=== PATIENT | female | born 2005 | race Caucasian/White ===

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

== ENCOUNTER 2024-10-31 14:18 | Emergency (ER) | payer OTHER, SELFPAY ==
--- NOTE | 2024-10-31 14:20 | ED.URI ---
HPI - URI/Sore Throat General Chief Complaint: Upper Respiratory Infection Stated Complaint: Sore throat / Cough Time Seen by Provider: 10/31/24 14:20 Source: patient Mode of arrival: ambulatory Limitations: no limitations History of Present Illness HPI Narrative: Patient is a 19-year-old female who presents with to or and throat 4 days ago with a cough and worse this that started yesterday. Denies any fever, chills, nausea, vomiting, diarrhea. Has been taking Tylenol and ibuprofen but nothing for cough. Related Data Home Medications ?Medication ?Instructions ?Recorded ?Confirmed ?Last Taken ?Type norgestimate-ethinyl estradiol 1 tablet PO DIRECTED 11/12/23 11/17/23 Unknown History 0.18mg/0.215mg/0.25mg-0.035mg(28)tablet (Tri-Sprintec (28)) Allergies Allergy/AdvReac Type Severity Reaction Status Date / Time Antihistamines - Alkylamine Allergy Severe Other Verified 10/31/24 14:27 Review of Systems Review of Systems: All systems reviewed & are unremarkable except as noted in HPI and below Constitutional: Constitutional: Denies chills, Denies fatigue, Denies fever(s), Denies headache(s), Denies malaise and Denies weakness Eyes: Eyes: Denies blurry vision, Denies itchy eyes and Denies loss of vision ENT: Denies otalgia, Denies headache(s), Reports hoarseness, Denies nasal congestion, Denies sinus pain and Reports sore throat Cardiovascular: Cardiovascular: Denies chest pain, Denies irregular heart rhythm and Denies dyspnea Respiratory: Respiratory: Reports cough and Denies dyspnea Gastrointestinal: Gastrointestinal: Denies abdominal pain, Denies diarrhea, Denies nausea and Denies vomiting Musculoskeletal: Musculoskeletal: Denies back pain, Denies myalgias and Denies arthralgias Integumentary/Breasts: Skin/Breast: Denies pruritus and Denies rash Neurologic: Denies headache(s), Denies loss of vision and Denies weakness Psychiatric: Psychiatric: Reports no additional psychiatric complaints Endocrine: Endocrine: Denies fatigue Allergic/Immunologic: Allergic/Immunologic: Denies itchy eyes PMFSH Past Medical History Medical History Gastrointestinal complaints Concussion Anxiety and depression 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 extra navicular bone right foot Surgical History Surgical History Combs teeth extracted History of tonsillectomy and adenoidectomy Family History Family History Mother Melanoma Depression Anxiety Thyroid disorder Heart disease Grandparent Diabetes mellitus Heart disease Hypertension Other Long QT syndrome Social History Social History Smoking status: Never smoker Second hand tobacco smoke exposure: No Alcohol intake: never Substance use: never Substance use type: does not use Do You Feel Safe in your Home?: Yes Lack of Transportation: No Lack of Food: Never True Current Housing: I Have Housing Concerned About Future Housing: No Difficulty Paying Gas/Electric Bills: No Difficulty Paying for Meds: No Currently Unemployed: No Living arrangements: with family Occupation/Education: student Gender identity (if verbalized by the patient): Female Sexual Orientation (if Verbalized by the Patient): Straight or Heterosexual Comments At time of signature, agree with nursing past medical, surgical, social and family history. There is no relevant family history pertinent to the presenting complaint. Exam Const: General: cooperative, healthy appearing, comfortable, no acute distress and well nourished Nutritional Appearance: well nourished Orientation/consciousness: patient oriented x3 Limitations: no limitations HENMT: Head: normal to inspection, normocephalic and atraumatic Ears: hearing grossly normal bilaterally, external ears normal, TM's normal bilaterally, EAC's normal and no periauricular adenopathy Face/Nose/Sinus: Normal external nose present, Abnormal mucous membranes and turbinates present erythematous bilateral and diffuse, normal facial exam, sinuses nontender and face symmetric Face and sinus: normal facial exam, sinuses nontender and face symmetric Mouth: Yes Normal oral and palatal mucosa present, Yes lip normal, Yes tongue normal, Yes Normal salivary glands and ducts present, Yes oropharynx normal and Yes moist mucous membranes Teeth and gingiva: dentition normal Throat: posterior oropharynx normal, tonsils normal and uvula midline Eyes: General: appearance normal, both eyes and all related structures Alignment and Position: alignment normal and position normal Periorbital: periorbital findings normal Eyelids: eyelids normal Pupils: Equal, round and reactive pupils present Neck: Neck: normal visual inspection, full ROM, no lymphadenopathy and supple Chest: Chest palpation & inspection: normal inspection of the chest and normal palpation of entire chest wall Resp: Effort & Inspection: normal respiratory effort, able to speak in complete sentences and no cough Auscultation: clear to auscultation bilaterally, no crackles, no rales, no rhonchi and no wheezes Cardio: Rate: regular rate Rhythm: regular rhythm Heart sounds: S1 normal heart sound present and S2 normal heart sound present GI: Inspection: normal to inspection Skin: General skin exam: normal color and no rashes or lesions noted Neuro: General: patient oriented x3 and moves all extremities Cranial nerves: Yes Equal, round and reactive pupils present Speech: normal speech Gait exam (Neuro): Normal gait present Extrem: General: normal to inspection, full ROM and no edema Psych: Appearance: grossly normal and well kempt Mental Status: mental status grossly normal Speech and movement: Normal speech and movement present Affect: normal affect Attitude: cooperative Thought process: Normal thought process present Course Course Emergency Course: Discharge instructions reviewed with patient, as well as provided in writing per nursing staff. The instructions also include specific and strict return/GO TO THE ER as well as f/u information. All questions have been answered, and the patient deny any further questions with discharge and discharge plan. Portions of this record may have been created with voice recognition software Level of Care: Express Care Visit Vital Signs Vital signs: Vital Signs Temperature 36.4 C L 10/31/24 14:24 Pulse Rate 79 10/31/24 14:24 Respiratory Rate 16 10/31/24 14:24 Blood Pressure 115/64 10/31/24 14:24 Pulse Oximetry 100 10/31/24 14:24 Oxygen Delivery Room Air 10/31/24 14:24 Temperature 36.4 C L 10/31/24 14:24 Pulse Rate 79 10/31/24 14:24 Respiratory Rate 16 10/31/24 14:24 Blood Pressure 115/64 10/31/24 14:24 Pulse Oximetry 100 10/31/24 14:24 Oxygen Delivery Room Air 10/31/24 14:24 Reviewed MDM - URI/Sore Throat MDM Narrative Medical decision making narrative: Pt well hydrated appearing, in no respiratory distress, hemodynamically stable. Recommend supportive care. The patient is stable at time of discharge the clinical impression was discussed and the patient was given the opportunity to ask questions, which were addressed as completely as possible given the information available at present. Anticipatory guidance and return to care precautions were discussed and the importance of primary care follow-up was stressed and encouraged. The patient voiced understanding of the plan, indications to return, and the need for follow-up. Exam findings show no acute concerns or changes Patient is appropriate for outpatient treatment and follow-up. Differential diagnosis considered: Naidu virus, strep pharyngitis, allergic rhinitis, upper respiratory tract infection, sinusitis, rhinosinusitis, nasopharyngitis. viral pharyngitis, otitis media, otitis externa, otitis effusion, foreign body, cerumen impaction, viral syndrome, and influenza.? Medical Records Attestation: I reviewed the patient's medical records. Lab Data Attestation: I reviewed the patient's lab results. Labs: Lab Results 10/31/24 Range/Units 14:31 POC Grp A Strep Screen Negative (Negative) Discharge Plan Discharge Clinical Impression: Upper respiratory infection Qualifiers: URI type: acute nasopharyngitis (common cold) Qualified Code(s): J00 - Acute nasopharyngitis [common cold] Patient Disposition: Home Condition: Stable Instructions: Upper Respiratory Infection (ED) Additional Instructions: Your rapid strep swab was negative today at [facility]. A throat culture will be sent to the laboratory for further testing. If the test is positive, you will receive a phone call within 48 hours and an appropriate antibiotic will be initiated at that time. Your symptoms are likely due to a viral illness, which is not treated with antibiotics. Viral symptoms can be present for up to a few weeks. -For pain/fever, you may take: Tylenol 650-1000mg by mouth every 4-6 hours. Do not exceed 4000mg in 24 hours. Advil (Ibuprofen) 600 mg by mouth every 6 hours. Do not exceed 2400mg in 24 hours. 8 AM: Tylenol 11 AM: Ibuprofen 2 PM: Tylenol 5 PM: Ibuprofen 8 PM: Tylenol 11 PM: Ibuprofen 2 AM: Tylenol 5 AM: Ibuprofen -Antihistamine medication such as Zyrtec at night and Claritin during the day can help improve symptoms. -Use Flonase twice a day for 5 days then daily to help reduce the inflammation and dry up your sinuses. -You can also use Sudafed behind the pharmacy counter(12 or 24 hour). Be sure to drink plenty of water with these medications at least 8 ounces with every dose and it is important to drink 8 to 10 glasses of water per day. Water is a natural decongestant -Eat and drink things that are easy to swallow, like tea or soup, or popsicles. -Oral rinses such as: Salt water gargles and/or may use topical anesthetic (eg. Chloraseptic spray) or lozenges to relieve dryness or throat pain). -Frequent hand washing or hand glass ribbon machine operator is one of the best ways to prevent spread of infection. -Using a vaporizer or humidifier at night will also help thin secretions and help with coughing up phlegm. Call your Primary Care Doctor and make a follow-up appointment in 3 days. If your cough worsens, you develop a fever greater than 103, you develop shaking chills, a fast heartbeat, trouble breathing and/or feel you are are breathing much faster than usual, call your Primary Care Doctor or go to the ER. Patient Language: Salvadorean Prescriptions: New benzonatate 100 mg capsule 100 mg PO BID PRN (Reason: cough) Qty: 14 0RF fluticasone propionate [Flonase Allergy Relief] 50 mcg/actuation spray,suspension 1 spray intranasal DAILY Qty: 16 0RF Rx Instructions: administer into each nostril No Action norgestimate-ethinyl estradiol [Tri-Sprintec (28)] 0.18/0.215/0.25 mg-35 mcg (28) tablet 1 tablet PO DIRECTED escitalopram oxalate 20 mg tablet 20 mg PO DAILY Qty: 1 0RF Follow-up/Referrals: Carla Giles MD [Primary Care Provider] - 3 Days Time of Disposition: 14:42
[2024-10-31 14:24] VITALS: BP 115/64; PULSE 79; RESP 16; TEMP 36.4; O2SAT 100
--- OUTSIDE RECORDS SUMMARY | 2024-10-31 14:24 | XMS_ITS | Clinical Summary ---
Author Organization [facility] Address [address] [place] [address] Phone Care Team Providers Care Die Sinker Name Role Phone Mary Platt MD Primary Care Provider [phone] Allergies No known active allergies Medications dicyclomine (BENTYL) 10 mg capsule Take 10 mg by mouth post-proc every 8 hours. 1 Active albuterol sulfate HFA 90 mcg/actuation aerosol inhaler INHALE 2 PUFFS BY MOUTH EVERY 4 HOURS NEEDED FOR COUGH OR DIFFICULTY BREATHING 1 Active amitriptyline (ELAVIL) 10 mg tablet Take 20 mg by mouth. 1 Active Active Problems Problem Noted Date Diagnosed Date Family history of cardiovascular disease 011 Venous hum 10/27/2010 Resolved Problems Problem Noted Date Diagnosed Date Resolved Date Heart murmur 10/26/2010 10/27/2010 Family History Relation Name Status Comments Father Alive Mother Alive Social History Tobacco Use Types Packs/Day Years Used Date Smoking Tobacco: Never Smokeless Tobacco: Never Tobacco Cessation:Counseling Given: No Alcohol Use Standard Drinks/Week Comments Never 0 (1 standard drink = 0.6 oz pur e alcohol) Comments No Sex and Gender Information Value Date Recorded Sex Assigned at Not on file Legal Sex Female 5:06 PM DYE OPERATOR Gender Identity Not on file Sexual Orientation Not on file Last Filed Vital Signs Vital Sign Reading Time Taken Comments Blood Pressure 102/60 04/20/2023 3:12 PM DYE OPERATOR Pulse 60 04/20/2023 3:12 PM DYE OPERATOR Temperature 36.8 C (98.3 F) 04/20/2023 3:12 PM DYE OPERATOR Respiratory Rate 12 04/20/2023 3:12 PM DYE OPERATOR Oxygen Saturation 99% 04/20/2023 3:12 PM DYE OPERATOR Inhaled Oxygen Concentration - - Weight 24.9 kg (55 lb) 10/26/2010 2:13 PM CDT Height 125.7 cm (4' 1.5) 10/26/2010 2:13 PM CDT Body Mass Index 15.78 10/26/2010 2:13 PM CDT Plan of Treatment Health Maintenance Due Date Last Done Comments CHLAMYDIA SCREENING (ANNUAL) 11-24 YEARS 01/13/2015 HPV VACCINES (1 - 3-dose series) 01/13/2019 DTAP/TDAP/TD VACCINES (1 - Tdap) 01/13/2023 HEPATITIS B VACCINES (1 of 3 - 19+ 3-dose series) 12/26 INFLUENZA VACCINE (#1) 2024 Insurance [employer] OPEN CHOICE PPO Care Teams Die Sinker Relationship Specialty Start Date End Date Mary Platt MD [address] [place] [id number] PCP - General Pediatrics 10/23/10
--- OUTSIDE RECORDS SUMMARY | 2024-10-31 14:24 | XMS_ITS | Clinical Summary ---
Author Organization [facility] Address [address] [place] [address] Care Team Providers Care Boot Turner Name Role Phone Mary Platt MD Primary Care Provider Carla Giles MD Unavailable [phone] Allergies No known active allergies Medications albuterol HFA (PROVENTIL HFA,VENTOLIN HFA,PROAIR HFA) 90 mcg/actuation inhaler INHALE 2 PUFFS BY MOUTH EVERY 4 HOURS NEEDED FOR COUGH OR DIFFICULTY BREATHING 1 Active Tri-Sprintec, 28, 0.18/0.215/0.25 mg-35 mcg (28) per tablet Take 1 tablet by mouth daily 5 Active escitalopram (LEXAPRO) 20 mg tablet Take 1 tablet (20 mg total) by mouth daily 5 Active Active Problems Problem Noted Date Diagnosed Date Postural orthostatic tachycardia syndrome (POTS) 05/28/2024 Palpitations 04/23/2024 Family history of long QT syndrome 04/23/2024 Sprain of medial collateral ligament of right kn ee 08/04/2021 Right knee injury, initial encounter 07/30/2021 Abdominal pain, epigastric 12/15/2018 Weight loss 12/15/2018 Acute pain of right knee 06/07/2018 Injury of right knee 06/07/2018 IBS (irritable bowel syndrome) 02/06/2018 Vocal cord dysfunction 09/13/2017 Overview (06/11/2020): Last Assessment & Plan: Vocal Cord Dysfunction - The incomplete/poor response to asthma medications, the normal chest exam, typical inspiratory pattern on PFT's, and description of dyspnea are most consistent with this diagnosis. Speech therapy referral - This is typically the most effective intervention for this problem. This will develop a treatment plan for laryngeal exercises and techniques to prevent and relieve episodes. I have reviewed the physiology of VCD, the larynx, and the paradoxic motion of the vocal cords typical of this entity. If symptoms persist despite speech therapy evaluation, I would like to see in follow up to evaluate for other triggers such as GERD that may be playing a role. Otherwise we will plan followup on an as needed basis. I think that her allergic rhinitis may be playing a role as a trigger as well. Will have her start Flonase. Mom to call with an update in symptoms. She has a modestly elevated Fraction of exhaled Nitric Oxide - marker of airway inflammation. This may represent some mild underlying asthma - the symptoms that have responded to albuterol in the past. I discussed with Mom that if Rain needs albuterol more than 2x a week or for a few days more than 2 x a month we should start controller therapy. We discussed the role of controller meds and the action of quick relief medications. Arthralgia of hip 08/17/2016 Disorder of hip region 08/17/2016 Arthralgia of ankle 02/04/2014 Pain of foot 02/01/2014 Surgical History Surgery Date Site/Laterality Comments TONSILECTOMY, ADENOIDECTOMY, BILATERAL MYRINGOTOMY AND TUBES FOOT SURGERY Medical History Medical History Date Comments Other congenital malformatio ns of lower limb(s), including pelvic girdle Accessory navicular b one of foot - (Added by TW Conv) Pain of foot Foot pain - (Add ed by TW Conv) IBS (irritable bowel syndrome) Anxiety Family History Medical History Relation Name Comments No Known Problems Father Diabetes Maternal Grandmother Family history of diabetes mellitus - (Added by TW Conv) Anxiety disorder Mother Cancer Mother Depression Mother Long QT syndrome Mother Family hist ory of long QT syndrome - (Added by TW Conv) Low Back Pain Mother Family history of low back pain - (Added by MICKY Conv) Migraines Mother Relation Name Status Comments Father Alive Maternal Grandmother Mother Alive Social History Tobacco Use Types Packs/Day Years Used Date Smoking Tobacco: Never Smokeless Tobacco: Never Tobacco Cessation:Counseling Given: No Comments Unknown Sex and Gender Information Value Date Recorded Sex Assigned at Not on file Legal Sex Female 6:19 AM PLASTIC WELDER Gender Identity Female 06/11/2020 8:14 AM CDT Sexual Orientation Not on file Obstetrics History Last Filed Vital Signs Vital Sign Reading Time Taken Comments Blood Pressure 118/70 05/28/2024 8:18 AM PLASTIC WELDER Pulse 80 05/28/2024 8:18 AM PLASTIC WELDER Temperature 35.8 C (96.5 F) 10/08/2021 9:15 AM CDT Respiratory Rate 18 10/08/2021 9:15 AM CDT Oxygen Saturation 98% 05/28/2024 8:18 AM PLASTIC WELDER Inhaled Oxygen Concentration - - Weight 69.4 kg (152 lb 14.4 oz) 05/28/2024 8:18 AM PLASTIC WELDER Height 165.1 cm (5' 5) 05/28/2024 8:18 AM PLASTIC WELDER Body Mass Index 25.44 05/28/2024 8:18 AM PLASTIC WELDER Plan of Treatment Health Maintenance Due Date Last Done Comments Depression Screening 2004 Hepatitis C Screening 2004 HPV Vaccines (1 - 3-dose series) 01/13/2019 Meningococcal B Vaccine (1 o f 2 - Standard) 2020 Regular Well Visit/Exam 18-64 01/13/2022 Influenza Vaccine (#1) 2024 DTaP/Tdap/Td Vaccine (7 - Td or Tdap) 01/20/2025 01/20/2015, 02/06/2009, 05/06/2005, Additional history exists Hepatitis B Screening Completed 01/15/2005 , 2004, 2004 Pneumococcal vaccine <65 Completed 005, 2004, 2004, Additional history exists Varicella Vaccines Completed 02/06/2009, 01/15/2005 Meningococcal Vaccine Completed 11/04/2020, 015 Insurance [facility]/PPO Address: [address] [address] [place] [address] [facility] CHOICE PLUS [facility] H[facility]/PPO Address: [address] [address] [place] [address] [employer] OPEN ACCESS [facility] Address: [address] [place] [address] [facility] CHOICE PLUS [facility] H[facility]/PPO Address: [address] [address] [place] [address] [employer] OPEN ACCESS [employer] OPEN ACCESS [employer] PPO POS Care Teams Boot Turner Relationship Specialty Start Date End Date Mary Platt MD [address] [facility] [address] [place] [id number] PCP - General 08/17/16 Carla Giles MD [address] [facility] [place] [address] Referring Physician Family Medicine 04/18/24
--- OUTSIDE RECORDS SUMMARY | 2024-10-31 14:24 | XMS_ITS | Encounter Summary ---
Author Organization [facility] Address [address] [place] [address] Care Team Providers Care Cloth Examiner Name Role Phone Mary Platt MD Primary Care Provider [phone] Mary Platt MD Primary Care Provider [phone] Encounter Details Date Type Department Care Team (Late st Contact Info) Description 05/08/2018 Telephone [facility] Pediatrics - [address] [place] [address] Carla Alfaro, CASE MANAGEMENT SPECIALIST-[facility] [address] [place] [address] Social History Tobacco Use Types Packs/Day Years Used Date Smoking Tobacco: Never Smokeless Tobacco: Never Alcohol Use Standard Drinks/Week Comments No 0 (1 standard drink = 0.6 oz pur e alcohol) Comments No Sex and Gender Information Value Date Recorded Sex Assigned at Not on file Legal Sex Female 5:44 AM LIQUOR BRIDGE OPERATOR Gender Identity Not on file Sexual Orientation Not on file documented as of this encounter Functional Status * Is person deaf or have serious hearing difficulty? Answer Date of Assessment Author No 02/06/2018 2:25 PM Julio Falcon RN * Is person blind or have serious difficulty seeing? Answer Date of Assessment Author No 02/06/2018 2:25 PM Julio Falcon RN * Does person have serious difficulty walking/climbing stairs? Answer Date of Assessment Author No 02/06/2018 2:25 PM Julio Falcon RN * Does person have difficulty dressing/bathing? Answer Date of Assessment Author No 02/06/2018 2:25 PM Julio Falcon RN * Does person have difficulty doing errands alone? Answer Date of Assessment Author No 02/06/2018 2:25 PM Julio Falcon RN documented as of this encounter Mental Status * Does person have difficulty concentrating/remembering/making decisions? Answer Entry Date Author No 02/06/2018 2:25 PM Julio Falcon RN documented in this encounter Miscellaneous Notes * Telephone Encounter - Samantha Al RN - 05/09/2018 9:00 AM LIQUOR BRIDGE OPERATOR Spoke with Rain's mom - reviewed MRI results again. Discussed plan for adolescent medicine aptand potential to switch from periactin to amitriptyline. Mom would like for Rain to continue periactin for the next several weeks and see if there is any improvement. Mom mentioned Rain hadused Levsin in the past with some relief - asking if this is an option until they can be seen by adolescent med. Will route to [place] - Mom aware someone will be in touch to schedule. OR BRIDGE OPERATOR * Telephone Encounter - Carla Alfaro APRN-CNP - 05/09/2018 8:23 AM LIQUOR BRIDGE OPERATOR The MRI looks good. No signs of IB. I recommend a referral to adolescent medicine. We discussed possibly trying SSRI therapy if Periactin was not helping. I can start this if mom is ok with that plan. OR BRIDGE OPERATOR * Telephone Encounter - Daphney Milian RN - 05/08/2018 2:48 PM CST Will send to Valeria Alfaro. OR BRIDGE OPERATOR * Telephone Encounter - Giovanna Barlow MD - 05/08/2018 1:27 PM CST This is a chronic issue. The results of the MRI and the scopes are normal. I would ask Carla Alfaro how she would like to handle this, unless if she is out of the office for more than a few days. OR BRIDGE OPERATOR * Telephone Encounter - Daphney Milian RN - 05/08/2018 12:56 PM CST Ginette Alfaro out of the office. Will send to Dr. Barlow to review. OR BRIDGE OPERATOR * Telephone Encounter - Samantha Al RN - 05/08/2018 12:26 PM LIQUOR BRIDGE OPERATOR Spoke with Rain's mom regarding MRI results. Mom reports Rain has been taking periactin as prescribed since last apt but has not seen any improvement with her symptoms. Mom reports symptomsare the same as last discussed. OR BRIDGE OPERATOR * Telephone Encounter - Kanika Cedillo - 05/08/2018 11:35 AM CST Spoke with mom she called for patients MRI results. OR BRIDGE OPERATOR documented in this encounter Plan of Treatment Not on file documented as of this encounter Visit Diagnoses Not on filedocumented in this encounter Care Teams Cloth Examiner Relationship Specialty Start Date End Date Mary Platt MD [address] [place] [id number] PCP - General 03/24/11 07/31/18 Mary Platt MD [address] [place] [phone] PCP - General Pediatrics 08/01/18 documented as of this encounter
--- OUTSIDE RECORDS SUMMARY | 2024-10-31 14:24 | XMS_ITS | Encounter Summary ---
Author Organization [facility] Address [address] [place] [address] Care Team Providers Care Bull Float Finisher Name Role Phone Mary Platt MD Primary Care Provider [phone] Mary Platt MD Primary Care Provider [phone] Encounter Details Date Type Department Care Team (Late st Contact Info) Description 07/13/2018 Telephone [facility] Pediatrics - [address] [place] [address] Carla Alfaro, PRESIDENT OF [facility] [place] [address] [place] [address] Social History Tobacco Use Types Packs/Day Years Used Date Smoking Tobacco: Never Smokeless Tobacco: Never Alcohol Use Standard Drinks/Week Comments No 0 (1 standard drink = 0.6 oz pur e alcohol) Comments No Sex and Gender Information Value Date Recorded Sex Assigned at Not on file 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
--- OUTSIDE RECORDS SUMMARY | 2024-10-31 14:24 | XMS_ITS | Clinical Summary ---
Author Organization [facility] Address [address] [place] [address] Care Team Providers Care Health Insurance Agent Name Role Phone Mary Platt MD Primary Care Provider [phone] Source Comments [facility],non-owned Affiliates and Associated Physician Practices is amultiple site organization consisting of ambulatory clinics and hospital sitesin [place], [place], [place] and [place]. This disclosure is being madepursuant to the Care Everywhere program and may not contain all information available regarding this patient. Last updated 17.[facility] Allergies No known active allergies Medications * This document contains information received from the source organization and may not represent a complete record from that organization. * Be aware that medications may not be up to date on this document. Always verify current medications with the patient. ibuprofen (MOTRIN) 200 MG tablet Take 600 mg by mouth every 6 hours as needed for Pain Active ferrous sulfate 325 (65 FE) MG tablet Take 1 tablet by mouth once daily 30 tablet 2 9 Active hyoscyamine (LEVSIN) 0.125 MG tabletIndicatio ns:Irritable Bowel Syndrome Take 2 tablets by mouth 4 times daily as needed for Spasms Reasons: Irritable Bowel Syndrome 100 tablet 1 9 Active Active Problems Problem Noted Date Diagnosed Date Left wrist pain 02/27/2018 IBS (irritable bowel syndrome) 02/06/2018 Weight loss 01/20/2018 Abdominal pain 01/20/2018 Nausea without vomiting 01/20/2018 Vocal cord dysfunction 09/13/2017 Assessment & Plan (09/13/2017 3:27 PM CDT): Vocal Cord Dysfunction - The incomplete/poor response [...] and the action of quick relief medications. Family history of long QT syndrome 10/24/2012 Overview (10/24/2012): - Mother with history of syncope in the post period - Currently managed with beta blockers Dizzy spells 10/24/2012 Obstructive sleep apnea syndrome 10/07/2010 SOB (shortness of breath) Resolved Problems Problem Noted Date Diagnosed Date Resolved Date Diarrhea 01/20/2018 03/06/2018 Hypertrophy of tonsils and adenoids 10/07/2010 09/13/2017 Family History Medical History Relation Name Comments Lupus Maternal Grandfather Long QT Syndrome Maternal Grandmother def ib / pacemaker Lupus Maternal Grandmother Other - Gastrointestinal Maternal Grandmother diverticulitis Other - Independent Marketing Consultant Maternal Grandmother enometr iosis Long QT Syndrome Maternal Uncle MVA - car diac event Heart defect Mother Long Q-T syndro me; mom, maternal grandma, and maternal uncle. Maternal uncle at age 16. Long QT Syndrome Mother hx of synco pe, worsened w/ zoloft, beta tarik Other - Independent Marketing Consultant Mother endometriosis Thyroid Disease Mother s/p radiatio n / now on replacement Anesthesia Reaction Neg Hx Bleeding Disorders Neg Hx Childhood Hearing Disorder Neg Hx Relation Name Status Comments Father Alive Maternal Grandfather Maternal Grandmother Alive Long QT Maternal Uncle Mother Alive Social History Tobacco Use Types Packs/Day Years Used Date Smoking Tobacco: Never Smokeless Tobacco: Never Alcohol Use Standard Drinks/Week Comments No 0 (1 standard drink = 0.6 oz pur e alcohol) Comments No Sex and Gender Information Value Date Recorded Sex Assigned at Not on file 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 Gender Identity Not on file Sexual Orientation Not on file Last Filed Vital Signs Vital Sign Reading Time Taken Comments Blood Pressure 98/62 09/29/2018 10:07 AM CDT Pulse 80 09/29/2018 10:07 AM CDT 16 RR Temperature 36.8 C (98.3 F) 05/03/2018 2:30 PM FORM COVERER Respiratory Rate 12 05/03/2018 2:30 PM FORM COVERER Oxygen Saturation 98% 05/03/2018 3:45 PM FORM COVERER Inhaled Oxygen Concentration - - Weight 61.1 kg (134 lb 11.2 oz) 019 10:07 AM CDT Height 165.5 cm (5' 5.16) 09/29/2018 1 0:07 AM CDT Body Mass Index 22.31 09/29/2018 10:07 AM CDT Plan of Treatment Health Maintenance Due Date Last Done Comments HIV SCREENING 01/13/2019 HPV VACCINE (1 - 3-dose series) 01/13/2019 CHLAMYDIA/GONORRHEA SCREENING 2020 MENINGOCOCCAL (Group B) VACC INE SHARED DECISION-MAKING (1 of 2 - Standard) 2020 HEPATITIS C SCREENING 01/09/2022 DTAP/TDAP/TD VACCINES (1 - Tdap) 01/13/2023 HEPATITIS B VACCINE (1 of 3 - 19+ 3-dose series) 01/13/2023 COVID-19 VACCINE (1 - 2023-2 5 season) 2023 DEPRESSION SCREENING 03/28/2024 INFLUENZA VACCINE (#1) 2024 ZOSTER VACCINE (1 of 2) 01/13/2054 HIB VACCINE Aged Out No longer eligi ble based on patient's age to complete this topic MENINGOCOCCAL GROUPS A/C/Y/W VACCINE Aged Out No longer eligible b ased on patient's age to complete this topic PNEUMOCOCCAL VACCINE Aged Out No long er eligible based on patient's age to complete this topic Insurance [employer] MANAGED MEDICARE ADV [address] [facility] Care Teams Health Insurance Agent Relationship Specialty Start Date End Date Mary Platt MD PCP - General Pediatrics 08/01/18
--- OUTSIDE RECORDS SUMMARY | 2024-10-31 14:24 | XMS_ITS | Continuity of Care Document ---
Author Name [facility] Address [address] [place] [address] Organization [facility] Care Team Providers Care Snap Attacher Name Role Phone [facility] Unavailable Unavailable Problems Problem Status Onset Date Problem Type Date of Resolution Comments Source Cervicalgia Active Diagnosis Neck pain (finding) Diagnosis Headache (finding) Diagnosis Anesthesia of skin (finding) Diagnosis Exposure to attack by other person (finding) Diagnosis Soccer (qualifier value) Diagnosis Fall involving sports equipment (finding) Diagnosis Concussion with no loss of consciousness (disorder) Diagnosis Fall on same level due to impact against another person (finding) Diagnosis Place of occurrence of accident or poisoning (environment) Diagnosis Injury due to exposure to external cause (disorder) Diagnosis Results Order Name Results Value Reference Range Date Interpretation Comments Source CT Head or Brain CT Head or Brain CT Scan/CT Angio Accession # Exam Date/Time Procedure Ordering Provider [id number] 2024 15:[address] Head or Brain Viji BUSCH, Suyapa Lockwood Reason For Exam (CT Head or Brain) fall Report EXAMINATION: CT Head or Brain without IV contrast INDICATION: fall COMPARISON: None FINDINGS: CT HEAD: INFARCT: No vascular territory infarct. HEMORRHAGE: No parenchymal or extra-axial hemorrhage. MASS EFFECT: None. PARENCHYMA: No intraparenchymal mass. VOLUME LOSS: None. VENTRICLES: No ventriculomegaly. VESSELS: Unremarkable. BONES: No acute fracture. SINUSES: Clear. MASTOIDS: Clear. ORBITS: Symmetric. SOFT TISSUES: Normal. IMPRESSION: No acute intracranial findings. I have personally reviewed the images and attest to the contents of this report. * * *Final Report* * * Electronically Signed by: Micaela Garcia DO Signed on: 01/14/24 16:30 01/13 15:35 :26 [facility] Consultation Notes Results Value Date Source Emergency Services Note Basic Informatio n Chief Complaint BIBA after being tackled during a soccer match reports neck and head pain C collar in placed denies LOC denies blood thinners History of Present Illness 19 year old female arrives via EMS after injury during college soccer match today. Patient was jumping up for a header and collided with 3 other players. Fell to the ground but denies LOC, has not walked since injury. EMS reported cervical spine tenderness, C-collar applied and patient placed on backboard. Patient reporting bilateral floaters, no other ocular complaints. No injuries. GCS 15. Review of Systems All pertinent systems reviewed and negative except as noted in HPI. Physical Exam Vitals and Measurements T: 37 C HR: 84 RR: 18 BP: 129/72 SpO2: 99% WT: 68.7 kg General: No acute distress Cardiac: Regular rate and rhythm, no edema, adequate peripheral perfusion Pulmonary: Clear to auscultation bilaterally, symmetric expansion, normal inspiratory effort Abdomen: Soft, non-tender, non-distended Extremities: Normal strength, no deformity, distal pulses present, sensation grossly intact Skin: Warm, dry, no rash Neuro: No focal deficits, alert and oriented Psych: Cooperative Procedure Medical Decision Making 19-year-old female arrives via EMS after injury during college soccer match. Patient is accompanied by parents, sister, boyfriend who contribute to the history. Boyfriend states she collided with another player while attempting to head the ball, patient is not remember the exact mechanism of injury but denies LOC. GCS 15, no obvious injuries. On exam patient has some left cervical paraspinal tenderness, no midline tenderness. Cervical collar was removed. After shared decision-making with family, we will proceed with CT head. Ordered ibuprofen, Lidoderm for neck pain. Interpreted CT head which is negative for acute pathology. Remains well-appearing on reassessment, ambulated and tolerated p.o. while in the ED. Placed order for follow-up with concussion clinic. Provided prescription for methocarbamol as needed for breakthrough symptoms at home. Reexamination/Reevaluation Assessment/Plan Concussion Patient Education Acute Concussion Follow Up With When Contact Information Follow up with primary care provider Within 5 to 7 days Additional Instructions: If Symptoms Persist Return to Emergency Department Additional Instructions: If symptoms worsen Medication Reconciliation ED Forms Problem List/Past Medical History Procedure/Surgical History Medication Administration Given ibuprofen 800 mg oral tablet, 800 mg, Oral Lidocaine 5% patch (Lidoderm), 1 Patch, Transdermal Allergies No Known Medication Allergies Social History Family History Lab Results Diagnostic Results (2024 15:[address] Head or Brain) EXAMINATION: CT Head or Brain without IV contrast INDICATION: fall COMPARISON: None FINDINGS: CT HEAD: INFARCT: No vascular territory infarct. HEMORRHAGE: No parenchymal or extra-axial hemorrhage. MASS EFFECT: None. PARENCHYMA: No intraparenchymal mass. VOLUME LOSS: None. VENTRICLES: No ventriculomegaly. VESSELS: Unremarkable. BONES: No acute fracture. SINUSES: Clear. MASTOIDS: Clear. ORBITS: Symmetric. SOFT TISSUES: Normal. IMPRESSION: No acute intracranial findings. [1] ECG [1] CT Head or Brain; Micaela Garcia DO 2024 15:41 CDT Attestation by Monty Garsia MD on January 17, 2024 18:39 I personally saw and evaluated the patient. I discussed the management with the resident and reviewed the resident's note. Grace elements of my history, exam, and/or medical decision making include: Neck strain as well I personally reviewed all images and the reports along with labs results that were ordered/obtained. I reviewed current and past available electronic medical records pertaining to today's concern. 2024 Vital Signs Vital Sign Value Date Comments Source SpO2 96 % 2024 21:16:54 [facility] Heart Rate 67 bpm 2024 21:16:46 [facility] Respiratory Rate 16 2024 21:16:00 [facility] Mean NIBP 83 mm[Hg] 2024 21:15:07 [facility] SBP NIBP 112 mm[Hg] 2024 21:15:07 [facility] DBP NIBP 71 mm[Hg] 2024 21:15:07 [facility] Weight (kg) 68.7 kg 2024 19:39:00 [facility] SBP NIBP 129 mm[Hg] 2024 19:39:00 [facility] DBP NIBP 72 mm[Hg] 2024 19:39:00 [facility] Heart Rate 84 bpm 2024 19:39:00 [facility] Respiratory Rate 18 2024 19:39:00 [facility] SpO2 99 % 2024 19:39:00 [facility] Temperature (Celsius) 37 Echo 2024 19:39:00 [facility] Encounters Location Location Details Encounter Type Encounter Number Reason For Visit Attending Provider ADM Date DC Date Status Source [facility] Transport [id number] Fara Terry 01/13 19:20 :00 01/13 19:32 :00 [facility] Emergency [id number] Fara Terry 01/13 19:38 :24 01/13 21:19 :00 [facility] Social History Social History Date Source No data available for this section 2024 [facility] No data available for this section 2024 [facility]
--- OUTSIDE RECORDS SUMMARY | 2024-10-31 14:27 | XMS_ITS | Continuity of Care Document ---
Author Name [facility] Address [address] [place] [address] Organization [facility] Care Team Providers Care Patient Services Manager Name Role Phone [facility] Unavailable Unavailable Problems Problem Status Onset Date [...] Accession # Exam Date/Time Procedure Ordering Provider [id number] 2024 15:[address] Head or Brain [...] Signed on: 01/14/24 16:30 01/13 15:35 :26 [facility] Consultation Notes Results Value Date Source Emergency [...] Comments Source SpO2 96 % 2024 21:16:54 [facility] Heart Rate 67 bpm 2024 21:16:46 [facility] Respiratory Rate 16 2024 21:16:00 [facility] Mean NIBP 83 mm[Hg] 2024 21:15:07 [facility] SBP NIBP 112 mm[Hg] 2024 21:15:07 [facility] DBP NIBP 71 mm[Hg] 2024 21:15:07 [facility] Weight (kg) 68.7 kg 2024 19:39:00 [facility] SBP NIBP 129 mm[Hg] 2024 19:39:00 [facility] DBP NIBP 72 mm[Hg] 2024 19:39:00 [facility] Heart Rate 84 bpm 2024 19:39:00 [facility] Respiratory Rate 18 2024 19:39:00 [facility] SpO2 99 % 2024 19:39:00 [facility] Temperature (Celsius) 37 Echo 2024 19:39:00 [facility] Encounters Location Location Details Encounter Type Encounter Number Reason For Visit Attending Provider ADM Date DC Date Status Source [facility] Transport [id number] Fara Terry 01/13 19:20 :00 01/13 19:32 :00 [facility] Emergency [id number] Fara Terry 01/13 19:38 :24 01/13 21:19 :00 [facility] Social History Social History Date Source No data available for this section 2024 [facility] No data available for this section 2024 [facility]
[2024-10-31 14:48] LABS: EDSTREPNEGPOS1 Negative (Negative)
== END 2024-10-31 14:45 | disposition home or self-care (01) ==
PROVIDERS: Emergency Provider Nurse Practitioner Family; PCP Family Medicine
DX: J00 Acute nasopharyngitis [common cold] (principal)
CPT/HCPCS: 87081; 87880; 99213; G0463